=== PATIENT | female | born 1955 | race Caucasian/White ===

== ENCOUNTER 2019-01-01 07:03 | Day surgery (SDC) | payer BC ==
[~2019-01-01] VITALS: Ht 162.6 cm; Wt 94.8 kg
[~2019-01-01 07:03] MED LIST: ALPR0.5T6 PO; ASPI81TA50 PO; CALC-31 PO; CRESTOR20 MG PO; DIPH25CA58 PO; FAMO20TA5 PO; HYDR12.58 PO; HYDROmorphone 2 MG/ML VIAL IV PRN; IV RINGERS,LACTATED 1000ML 1,000 ML IV SCH; LIDOCAINE 1% PF 2 ML VIAL. ID PRN; LOSA-73 PO; LUBI8CAP4 PO; MORPHINE SULFATE 2 MG/ML VIAL. IV PRN; MULT1TAB52 PO; ONDANSETRON PF 4 MG/2 ML VIAL. IV PRN; PROCHLORPERAZINE 10 MG/2 ML VIAL. IV PRN; TRAM50TA PO; VERA240C2 PO; XOPENEX HFA15 GM IH; fentaNYL PF VIAL 100 MCG/2 ML VIAL IV PRN
[2019-01-01] MEDS ORDERED: SUCCINYLCHOLINE 200 MG/10 ML VIAL. ONE (07:07)
[2019-01-01] MEDS ORDERED: fentaNYL PF VIAL 100 MCG/2 ML VIAL ONE (07:07)
[2019-01-01] MEDS ORDERED: LIDOCAINE 2% PF 5 ML VIAL. ONE (07:07)
[2019-01-01] MEDS ORDERED: ROCURONIUM 50 MG/5 ML VIAL. ONE (07:07)
[2019-01-01] MEDS ORDERED: PROPOFOL 20 ML IV ONE (07:07)
[2019-01-01] MEDS ORDERED: EPINEPHrine VIAL 30 MG/30 ML VIAL ONE (07:19)
[2019-01-01 07:39] LABS: BASO # 0.1 x10^3/uL (0.0-0.2); BASO % 1 % (0-3); EOS # 0.2 x10^3/uL (0.0-0.7); EOS % 2 % (0-3); HEMATOCRIT 40.7 % (36.0-47.0); HEMOGLOBIN 13.2 g/dL (12.0-15.5); LYMPH # 8.7 x10^3/uL (1.0-4.8); LYMPH % 74 % (24-48); MEAN CORPUSCULAR HEMOGLOBIN 28 pg (25-35); MEAN CORPUSCULAR HGB CONC 33 g/dL (31-37); MEAN CORPUSCULAR VOLUME 86 fL (79-100); MONO # 0.5 x10^3/uL (0.0-1.1); MONO % 4 % (0-9); NEUT # 2.3 x10^3uL (1.8-7.7); NEUT % 20 % (31-73); PLATELET COUNT 192 x10^3/uL (140-400); RED BLOOD COUNT 4.75 x10^6/uL (3.50-5.40); RED CELL DISTRIBUTION WIDTH 14.2 % (11.5-14.5); WHITE BLOOD COUNT 11.8 x10^3/uL (4.0-11.0)
[2019-01-01] MEDS ORDERED: ROPIVacaine 0.5% PF 20 ML VIAL. ONE (07:41)
[2019-01-01 07:56] LABS: CALCIUM 9.4 mg/dL (8.5-10.1); CREATININE 0.9 mg/dL (0.6-1.0); GFR 63.7; POTASSIUM 3.6 mmol/L (3.5-5.1)
[2019-01-01] MEDS ORDERED: MIDAZOLAM HCL/PF 2 MG/2 ML VIAL. ONE (07:56)
[2019-01-01] MEDS ORDERED: PHENYLEPHRINE 10 MG/ML VIAL. ONE (08:28)
[2019-01-01] MEDS ORDERED: DEXAMETHASONE SOD PHOS 20 MG/5 ML VIAL. ONE (08:28)
[2019-01-01] MEDS ORDERED: DESFLURANE 61 TO 120 MINUTES IH ONE (08:28)
[2019-01-01] MEDS ORDERED: GLYCOPYRROLATE 1 MG/5 ML VIAL. ONE (08:39)
--- NOTE | 2019-01-01 08:47 | EKG ---
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
--- NOTE | 2019-01-01 10:55 | DISCH ---
DISCHARGE INSTRUCTIONS Condition on Discharge Condition on Discharge: Stable Activity After Discharge Activity Instructions for Disc: Other, see below (acid range of motion right shoulder only 1 month postoperatively) Lifting Instructions after Dis: No heavy lifting, No pulling or pushing, Add. restrict see below (fine motor use allowed with right elbow at side only, example may eat, limited writing or typing) Diet after Discharge Diet after Discharge: Regular Wound Incision Care Wound/Incision Care: Change dressing (May remove dressing in 2 days may then shower no soaking until sutures out) Community/Resources/Services Services at Discharge: PT EVALUATE & TREAT (physical therapy written so she can do it locally in [facility]) Contacting the DRGabbi after DC Call your doctor for: Concerns you may have Follow-Up Follow up with: Gisselle 1 week SUDARSHAN MILNER MD Jan 01, 2019 10:55
[2019-01-01] MEDS ORDERED: OXYC1TAB19 PO (10:57)
[2019-01-01 11:01] LABS: % LYMPHS 80 % (24-48); % MONOS 7 % (0-10); % SEGS 13 % (35-66)
[2019-01-01 11:02] LABS: PLT ESTIMATE ADEQUATE (ADEQUATE); SMUDGE CELLS PRESENT
[2019-01-01] MEDS ORDERED: oxyCODONE/APAP 7.5/325 1 TAB TABLET PO ONE (11:15)
[2019-01-01 12:19] VITALS: BP 110/54
--- NOTE | 2019-01-01 21:15 | PDOC4 ---
Operative Note Operative Note Date of surgery: 01/01/2019 Preoperative diagnosis: Right shoulder rotator cuff tear Postoperative diagnosis same plus impingement and severe compromise of superior labrum Operative procedure: Right shoulder arthroscopy arthroscopic rotator cuff repair and extensive debridement of superior labrum and subscapularis partial thickness tear as well as a subacromial decompression Surgeon: Gisselle Assist: Jesus Calloway Anesthesia: Gen. plus scalene block Complications: None Estimated blood loss: 10 mL Operative indications patient is a 63-year-old female with right dominant shoulder pain unresponsive to nonoperative treatment MRI noted rotator cuff injury as well as suspicion of superior labral compromise. I had gone over with her the rationale for evaluation and possible rotator cuff repair and appropriate treatment of the additional pathology. We covered the possibility of nonhealing nerve or blood vessel damage continued pain infection medical or anesthetic complications among others. All her questions were answered she wished to proceed with surgical evaluation and treatment. Operative text: Patient was identified procedure verified patient placed in the supine position on the operative table. After adequate amounts of general anesthesia were administered she is placed in the decubitus position right side up all bony prominences were well-padded shoulder was then examined under anesthesia found to have full range of motion no instability. The right shoulder was then prepped and draped in standard sterile fashion and was placed in the arthroscopic arm bueno with a total of 15 pounds of traction. After timeout was performed patient procedure identified and verified a standard posterior portal was established an anterior portal established using spinal needle localization and the shoulder joint was systematically examined. She had severe compromise of her superior labrum and biceps which was extensively debrided biceps tenotomized she was found to have a full-thickness rotator cuff tear anterior supraspinatus along and anterior to the course of the biceps subscapularis was notable for a partial thickness tears superiorly and was debrided back to stable tissue glenohumeral joint was otherwise well preserved as with the capsule ligament structures subacromial space was then entered she had a large anterior subacromial spur which was converted to a type I acromion using cutting block technique. Traction sutures were placed in the posterior limb of the rotator cuff tear and were secured to the subscapularis for a rotator interval type repair of the distal insertion of the supraspinatus was otherwise found to be relatively intact the remnant of the biceps tendon was used for reinforcement as well a satisfactory watertight repair was noted in all degrees of internal/external rotation. The shoulder joint was then drained of arthroscopic fluid portals closed with nylon suture sterile dressings were applied patient was placed in an immobilizer extirpated transferred to postop holding in stable condition having tolerated procedure well SUDARSHAN MILNER MD Jan 01, 2019 21:15
== END 2019-01-01 13:22 | disposition home or self-care (01) ==
LOC: SURG 07:03
PROVIDERS: ATTEND Orthopaedic Surgery
DX: S46.011A Strain of muscle(s) and tendon(s) of the rotator cuff of right shoulder, initial encounter (principal); M75.41 Impingement syndrome of right shoulder; I10 Essential (primary) hypertension; E78.5 Hyperlipidemia, unspecified; K21.9 Gastro-esophageal reflux disease without esophagitis; J45.909 Unspecified asthma, uncomplicated; M19.90 Unspecified osteoarthritis, unspecified site; Z79.82 Long term (current) use of aspirin; Z90.49 Acquired absence of other specified parts of digestive tract; Z90.710 Acquired absence of both cervix and uterus; Z98.890 Other specified postprocedural states; X58.XXXA Exposure to other specified factors, initial encounter; Y93.89 Activity, other specified; Y92.89 Other specified places as the place of occurrence of the external cause; Y99.8 Other external cause status; Z79.899 Other long term (current) drug therapy; Z91.040 Latex allergy status
CPT/HCPCS: 29823; 29827; 36415; 80048; 85025; 93005; A7015; J0171; J0330; J0696; J1100; J2001; J2250; J2704; J2795; J3010; J3490; J7120; 85007